=== PATIENT | female | born 1955 | race Caucasian/White ===

== ENCOUNTER 2019-08-15 08:39 | Emergency (ER) | payer MEDICARE, OTHER, SELFPAY ==
[2019-08-15 08:40] VITALS: BP 137/68; PULSE 93; RESP 18; TEMP 36.6; O2SAT 98; BMI 25.9
--- NOTE | 2019-08-15 08:59 | ED.DCSUM_ITS ---
- ER Visit Summary Date of Service: 08/15/19 Chief Complaint: Feeding tube came out History of Present Illness: The patient is a 64 F who tells me her feeding tube came out. She states that she pulled on it and the stitch came out. She states that it has not came all the way out. She states that this tube was placed on July 18. 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 She does not know if it is in her stomach or in her small intestine. She denies any significant pain. Denies any bleeding. Physical Examination: Vital signs are reviewed. Heart is regular rate and rhythm. Lungs are clear. Abdomen soft nontender. There is a feeding tube in place on the left upper part of the abdomen. There is no bleeding. No erythema. Her neurologic exam is normal. Test Results: KUB with Gastrografin today through the J-tube reveals that the J- tube is in the jejunum Emergency Department Course and Treatment: The patient had stitches a that kept the tube in place. She states that she does not want any more stitches. She would rather have it taped to her abdomen. Nursing will place new gauze and will taper the tube to her abdomen. She has a follow-up next where she thinks that the tube may be able to be removed. She will keep it taped to make sure it does not completely come out. Treatment Plan: [] Disposition: Discharge Impression: Concern for J-tube displacement This note was generated with [employer] dictation software. It may contain incorrect words, spelling, and punctuation that were not noted in review of the chart prior to signing ED Disposition - Plan for ED Patient: Referrals: Care Physician,No Primary [Primary Care Provider] -
--- NOTE | 2019-08-15 09:03 | RAD_ITS ---
STUDY: X-RAY - ABDOMEN/PELVIS REASON FOR EXAM: Female, 64 years old. Assessment of the feeding tube. TECHNIQUE: 60 cc of Gastrografin/water mixture was injected into the tube. COMPARISON: None. FINDINGS: The feeding tube is seen within the jejunum in the left upper quadrant. RAD/Abdomen Single View IMPRESSION: The feeding tube is within the jejunum in the left upper quadrant. Electronically Signed: Yoel Trivedi, at 9:21 EDT , Service support ,
--- NOTE | 2019-08-15 09:37 | ED.DEP ---
ED Disposition - Plan for ED Patient: Disposition: Home or Assisted Living Instructions: Gastrostromy or Gastro-jejunum Tube: Care Referrals: Care Physician,No Primary [Primary Care Provider] -
[2019-08-15 09:47] VITALS: PULSE 85; RESP 18; O2SAT 98
== END 2019-08-15 09:47 | disposition home or self-care (01) ==
PROVIDERS: Emergency Provider Emergency Medicine
DX: Z43.4 Encounter for attention to other artificial openings of digestive tract (principal); K22.70 Barrett's esophagus without dysplasia; K21.9 Gastro-esophageal reflux disease without esophagitis
CPT/HCPCS: 74018; 99282

== ENCOUNTER 2019-08-18 15:55 | Emergency (ER) | payer MEDICARE, OTHER, SELFPAY ==
[2019-08-18 15:56] VITALS: BP 126/67; PULSE 84; RESP 16; TEMP 36.1; O2SAT 98; BMI 26.2
--- NOTE | 2019-08-18 16:24 | ED.DCSUM_ITS ---
History of Present Illness Chief Complaint: Other, Pain/Inj Informant: Patient Onset: Today Context: Sudden Onset Timing: Continuous Current Severity: Moderate Maximum Severity: Moderate Narrative: The patient comes to the emergency department with dislodged J-tube. The patient is one-month status post esophagectomy, pyloromyotomy, and jejunostomy at [facility] for esophageal stricture. Patient was actually seen here 4 days ago. At that point, her tube had moved. She did not want any sutures placed. States today, she was trying to flush it and felt like the balloon popped and then the J-tube came out. She does take all of her feeds and meds through the J-tube. She is taking nothing by mouth. She is not scheduled to have it removed until the first week of September. Patient is otherwise been in her normal state of health. She states she is been recovering without issue. Prior similar symptoms: No Recent Illness/Hospitalization: No Past Medical History - Allergies and Home Meds Allergies/Adverse Reactions: Allergies No Known Allergies Allergy (Verified 08/15/19 08:42) Primary Care Physician: Care Physician,No Primary [NON-STAFF] - Prior records reviewed: Yes Past Medical History: - Surgical History: - - Total esophagectomy, pyloromyotomy, jejunostomy Smoking Status: Former smoker Review of Systems General: Denies: Chills, Fever, Sweats Eyes: Denies: Visual changes - bilaterally, Diplopia ENT: Denies: Rhinorrhea, Sore throat Cardiovascular: Denies: Chest pain, Palpitations Respiratory: Denies: Dyspnea, Cough, Dyspnea on exertion Gastrointestinal: Denies: Abdominal pain, Nausea, Vomiting, Diarrhea, Melena, Hematochezia Genitourinary: Denies: Dysuria, Hematuria, Frequency Musculoskeletal: Denies: Back pain, Extremity Pain Skin: Denies: Rash, Wounds Neurological: Denies: Headache, Weakness, Numbness Physical Exam Vital Signs/Narrative: Vital Signs Temp Pulse Resp BP Pulse Ox 08/18/19 15:56 97 F L 84 16 126/67 H 98 Inital Vital Signs reviewed: Yes General: Well nourished, Well developed, No Acute Distress Head: Normocephalic, Atraumatic Eyes: Perrl, EOMI ENT: Moist mucous membranes, No rhinorrhea Neck: Supple, Nontender Cardiovascular: Regular rate, Regular rhythm, No murmurs Respiratory: No distress, CTA bilaterally, Chest nontender Abdomen: Soft, Nontender, Nondistended, Normal bowel sounds Back: Nontender, Normal Inspection Extremities: Nontender, No edema Skin: Normal color, No rash Neurological: Alert, Oriented x3, Cranial nerves II-XII grossly intact, Normal Strength, Normal Sensation Psychological: Normal affect, Normal Mood Diagnostic/Tx/Re-eval Clinical Impression(s) from Imaging Studies KUB X-Ray 08/18/19 17:15 IMPRESSION: J-tube placement within the proximal jejunum Electronically Signed: Eduardo Link MD at 17:47 EDT , Service support , - Medical Decision Making The patient presents with J-tube dislodgment. It was not a PEG. I did discuss this with her surgeon, Dr. RA BOOTH. He recommended placing an 18 Chinese Mohamud. This was done. Gastrografin KUB shows it to be in place. The patient tolerated this without issue. At this point, she will be discharged. Impression 1. J-tube dislodgment ED Disposition - Plan for ED Patient: Disposition: Home or Assisted Living Instructions: FEEDING TUBE REPLACEMENT with Mohamud Catheter Referrals: Care Physician,No Primary [NON-STAFF] -
--- NOTE | 2019-08-18 17:15 | RAD_ITS ---
STUDY: X-RAY - ABDOMEN/PELVIS REASON FOR EXAM: Female, 64 years old. J-tube placement TECHNIQUE: KUB COMPARISON: None. FINDINGS: Normal visualized lung bases. There is an unremarkable bowel gas pattern. There is no demonstrated free abdominal air. J-tube is noted in the left mid abdomen contrast entering the proximal jejunum confirming tube placement.. There is no extravasation of contrast The visualized liver, spleen and kidneys are grossly normal in size and morphology. Surgical clips are seen within the pelvis bilaterally.. Normal visualized osseous structures. RAD/Abdomen Single View IMPRESSION: J-tube placement within the proximal jejunum Electronically Signed: Eduardo Link MD at 17:47 EDT , Service support ,
== END 2019-08-18 18:06 | disposition home or self-care (01) ==
LOC: ED 16:45
PROVIDERS: Emergency Provider Emergency Medicine
DX: T85.898A Other specified complication of other internal prosthetic devices, implants and grafts, initial encounter (principal); Z93.4 Other artificial openings of gastrointestinal tract status; Z87.891 Personal history of nicotine dependence
CPT/HCPCS: 44799; 74018; 99282